=== PATIENT | female | born 1980 | race Asian ===

== ENCOUNTER 2017-01-28 09:45 | Inpatient (IN) | payer SELFPAY ==
[~2017-01-28] VITALS: Ht 160 cm; Wt 77.0 kg
[2017-01-28] MEDS ORDERED: NS IRRIG SOLN 1000 ML IR ONE (12:14)
[2017-01-28] MEDS ORDERED: MORPHINE SULFATE 10MG/10ML PF AMP EP ONE (12:14)
[2017-01-28] MEDS ORDERED: LR 1,000 ML IV.SOLN IV ONE (12:14)
[2017-01-28] MEDS ORDERED: CEFAZOLIN 2 GM IVPB PREMIX 50 ML IV ONE ×2 (12:14→12:15)
[2017-01-28] MEDS ORDERED: BUPIVACAINE /PF 0.75% 10 ML VIAL INJ ONE (12:14)
[2017-01-28] MEDS ORDERED: CITRIC ACID/SODIUM CITRATE 30 ML UDC PO ONE (12:30)
[2017-01-28 12:36] LABS: BASOPHILS % (AUTO) 0.2 % (0.0-2.0); EOSINOPHILS # (AUTO) 0.1 K/uL (0.0-0.4); EOSINOPHILS % (AUTO) 0.8 % (0.0-4.0); HEMATOCRIT 34.5 % (36-48); HEMOGLOBIN 11.7 g/dL (12.0-16.0); LYMPHOCYTES % (AUTO) 15.7 % (20.5-51.5); MEAN CORPUSCULAR HEMOGLOBIN 32 pg (27-31); MEAN CORPUSCULAR HGB CONC 34 % (32-36); MEAN CORPUSCULAR VOLUME 93 fL (79.0-98.0); MONOCYTES # (AUTO) 0.6 K/uL (0.0-1.0); MONOCYTES % (AUTO) 9.2 % (1.7-9.3); NEUTROPHILS % (AUTO) 74.1 % (40.0-70.0); PLATELET COUNT (AUTO) 200 K/uL (130-430); RED BLOOD CELL COUNT(AUTO) 3.69 MIL/uL (4.2-6.2); RED CELL DISTRIBUTION WIDTH 12.4 % (9.0-15.0); WHITE BLOOD COUNT (AUTO) 6.7 K/uL (4.8-10.8)
[2017-01-28] MEDS ORDERED: CITRIC ACID/SODIUM CITRATE 30 ML UDC ONE (12:41)
[2017-01-28 12:53] LABS: BILIRUBIN,URINE NEGATIVE (NEGATIVE); BLOOD, URINE NEGATIVE (NEGATIVE); CLARITY/URINE CLEAR (CLEAR); COLOR,URINE YELLOW (YELLOW); GLUCOSE,URINE NEGATIVE (NEGATIVE); KETONES,URINE NEGATIVE (NEGATIVE); LEUKOCYTE ESTERASE ,URINE NEGATIVE (NEGATIVE); NITRITE, URINE NEGATIVE (NEGATIVE); PH,URINE 6.5 (5.0-8.0); PROTEIN URINE NEGATIVE (NEGATIVE); UROBILINOGEN,URINE 0.2 (0.2-1.0)
[2017-01-28] MEDS ORDERED: OXYTOCIN/NORMAL SALINE 1,000 ML IV ONE ×2 (13:20→16:30)
[2017-01-28] MEDS ORDERED: ANUSOL 1 EA SUPP.RECT (PREPARATION H) RC PRN (13:30)
[2017-01-28] MEDS ORDERED: HYDROcodone/ACETAMIN 5-325 MG TAB (NORCO/ VICODIN) PO PRN (13:30)
[2017-01-28] MEDS ORDERED: OXYCODONE/ACETAMINOPHEN 5-325 TABLET PO PRN ×2 (13:30)
[2017-01-28] MEDS ORDERED: SIMETHICONE 80 MG TAB.CHEW PO PRN (13:30)
[2017-01-28] MEDS ORDERED: DOCUSATE SODIUM 100 MG CAPSULE PO PRN (13:30)
[2017-01-28] MEDS ORDERED: LANOLIN 7 GM OINT. TP PRN (13:30)
[2017-01-28] MEDS ORDERED: MEASLES,MUMPS&RUBELLA VACC/PF 12500 UNIT/0.5 ML VIAL SUBQ PRN (13:30)
[2017-01-28] MEDS ORDERED: LR 1,000 ML IV SCH (13:40)
[2017-01-28] MEDS ORDERED: HYDROmorphone 1 MG INJ. 1 MG/ML AMPUL IVP PRN ×2 (13:45)
[2017-01-28] MEDS ORDERED: NALBUPHINE HCL 10 MG/ML AMP IVP PRN (13:45)
[2017-01-28] MEDS ORDERED: ONDANSETRON HCL 4 MG/2 ML VIAL IVP PRN ×2 (13:45)
[2017-01-28] MEDS ORDERED: NALOXONE HCL 0.4 MG/ML AMP (NARCAN) IVP PRN (13:45)
[2017-01-28] MEDS ORDERED: HYDROmorphone 2 MG/ML VIAL IVP PRN ×2 (13:45)
[2017-01-28] MEDS ORDERED: MORPHINE SULFATE 10MG/10ML PF AMP SP SCH (13:45)
[2017-01-28] MEDS ORDERED: MEPERIDINE HCL/PF 25 MG/ML DISP.SYRIN IVP PRN ×2 (13:45)
[2017-01-28] MEDS ORDERED: ePHEDrine sulfate 50 MG/ML VIAL IVP PRN (13:45)
[2017-01-28] MEDS: DIPHENHYDRAMINE INJ 50 MG/ML VIAL IVP PRN (15:00)
[2017-01-28] MEDS ORDERED: DIPHENHYDRAMINE INJ 50 MG/ML VIAL ONE (15:12)
[2017-01-28] MEDS: CEFAZOLIN 1 GM IVPB PREMIX 50 ML IV SCH (19:30)
[2017-01-28] MEDS ORDERED: TEMAZEPAM 15 MG CAPSULE PO PRN (21:00)
[2017-01-29] MEDS: LR 1,000 ML IV SCH ×2 (00:15→06:57)
[2017-01-29 00:20] VITALS: BP_SYST 115
[2017-01-29] MEDS ORDERED: DIPH-TET-PERTUS Vaccine 0.5 ML VIAL (ADACEL) I.M. PRN (00:45)
[2017-01-29] MEDS: CEFAZOLIN 1 GM IVPB PREMIX 50 ML IV SCH ×3 (01:30→06:57)
[2017-01-29] MEDS: IBUPROFEN 600 MG TABLET PO SCH ×3 (06:13→23:59)
[2017-01-29 06:57] LABS: BASOPHILS % (AUTO) 0.1 % (0.0-2.0); EOSINOPHILS % (AUTO) 0.4 % (0.0-4.0); HEMATOCRIT 33.8 % (36-48); HEMOGLOBIN 11.6 g/dL (12.0-16.0); MEAN CORPUSCULAR HEMOGLOBIN 32 pg (27-31); MEAN CORPUSCULAR HGB CONC 34 % (32-36); MEAN CORPUSCULAR VOLUME 93 fL (79.0-98.0); MONOCYTES # (AUTO) 0.8 K/uL (0.0-1.0); MONOCYTES % (AUTO) 6.8 % (1.7-9.3); NEUTROPHILS # (AUTO) 9.3 K/uL (1.8-7.7); PLATELET COUNT (AUTO) 168 K/uL (130-430); RED BLOOD CELL COUNT(AUTO) 3.64 MIL/uL (4.2-6.2); RED CELL DISTRIBUTION WIDTH 12.5 % (9.0-15.0); WHITE BLOOD COUNT (AUTO) 11.1 K/uL (4.8-10.8)
[2017-01-29] MEDS ORDERED: HYDROmorphone 1 MG INJ. 1 MG/ML AMPUL IVP ONE (08:15)
[2017-01-29 09:23] LABS: NEUTROPHILS % (AUTO) 83.7 % (40.0-70.0)
[2017-01-29] MEDS ORDERED: OXYCODONE/ACETAMINOPHEN 5-325 TABLET PO PRN (12:00)
[2017-01-29] MEDS: DIPHENHYDRAMINE INJ 50 MG/ML VIAL IVP PRN (13:51)
[2017-01-30] MEDS: IBUPROFEN 600 MG TABLET PO SCH (06:00)
[2017-01-30] MEDS: FLU VACC QS 2017-18(36MOS+)/PF 0.5 ML/SYR SYRINGE I.M. PRN ×2 (10:20→11:08)
== END 2017-01-30 12:15 | disposition home or self-care (01) | DRG 766 ==
LOC: SPU 09:45
PROVIDERS: ADMIT Obstetrics & Gynecology; ATTEND Obstetrics & Gynecology
PROC: 10D00Z1 Extraction of Products of Conception, Low, Open Approach (ICD-10-PCS; principal; 2017-01-28 13:00)
DX: O34.219 Maternal care for unspecified type scar from previous cesarean delivery (principal); D25.9 Leiomyoma of uterus, unspecified; O99.284 Endocrine, nutritional and metabolic diseases complicating childbirth; O75.89 Other specified complications of labor and delivery; E78.1 Pure hyperglyceridemia; E05.90 Thyrotoxicosis, unspecified without thyrotoxic crisis or storm; O34.13 Maternal care for benign tumor of corpus uteri, third trimester; Z3A.39 39 weeks gestation of pregnancy; Z37.0 Single live birth
CPT/HCPCS: 36415; 81003; 85025; 86886; 86900; 86901; 90715; 94760; J0690; J1170; J1200; J2274; J2590; J3490; J7120; Q2037